=== PATIENT | female | born 1970 | race Caucasian/White ===

== ENCOUNTER 2016-12-30 16:43 | Emergency (ER) | payer MEDICAID ==
[2016-12-30 17:10] VITALS: BP 127/85; PULSE 82; RESP 17; TEMP 98.1; O2SAT 98
--- NOTE | 2016-12-30 18:05 | EDPHY ---
H & P Time Seen by Provider: 12/30/16 17:55 HPI/ROS: CHIEF COMPLAINT: Skin infection HISTORY OF PRESENT ILLNESS: This is a 46-year-old female presenting to the emergency department complaining of skin infection and rash. Patient states she has been having issues with skin rash over 1-2 months, but has noticed a "few spots of pus pockets to my forearm and my chin" over the past week patient states she has scratched it and popped one of the blisters. Denies any fever chills or nausea vomiting REVIEW OF SYSTEMS: Constitutional: No fever, no chills. ENT: No sore throat. Cardiovascular: No chest pain, no palpitations. Respiratory: No cough, no shortness of breath. Gastrointestinal: No abdominal pain, no vomiting. Musculoskeletal: No back pain. Skin: No rashes. Pus pocket on left forearm and chin Neurological: No headache. Smoking Status: Current every day smoker Physical Exam: General Appearance: Alert, no distress. Eyes: Pupils equal and round no pallor or injection. ENT, Mouth: Mucous membranes moist. Respiratory: There are no retractions, nonlabored respiratory effort Cardiovascular: Regular rate and rhythm. Gastrointestinal: Abdomen is soft and nontender Neurological: No focal deficits Skin: Warm and dry. Round oval lesion noted to left forearm erythema with excoriation, 1 cm x .5 cm oval area on right-sided lower chin excoriation erythemic some drainage no swelling Musculoskeletal: Neck is supple nontender. Extremities: symmetrical, full range of motion. Psychiatric: Patient is oriented X 3, there is no agitation. Constitutional: Initial Vital Signs Temperature (C) 36.7 C 12/30/16 17:05 Heart Rate 82 12/30/16 17:05 Respiratory Rate 17 12/30/16 17:05 Blood Pressure 127/85 H 12/30/16 17:05 O2 Sat (%) 98 12/30/16 17:05 O2 Delivery Mode Room Air Allergies/Adverse Reactions: No Known Allergies Allergy (Verified 12/30/16 17:04) Home Medications: Medication Instructions Recorded Cephalexin [Keflex (*)] 250 mg PO TID #21 cap 12/30/16 Topamax 12/30/16 Wellbutrin 100mg (*) 12/30/16 Medical Decision Making ED Course/Re-evaluation: Discussed ED plan of care: wound cx sent, pt pleced on Keflex 1805: Discharge home--> stable, discussed discharge instructions. Patient [facility] week Differential Diagnosis: Other differential diagnosis considered but not limited to abscess, contact dermatitis and MRSA Departure - Departure Disposition: Home, Routine, Self-Care Clinical Impression: Skin infection Condition: Good Instructions: Cellulitis (ED) Additional Instructions: Discussed discharge instructions 1. Take all antibiotics as prescribed. A wound culture was sent if there is any need to change medication treatment plan we will call you 2. Do not scratch or pick area 3. You can take ibuprofen as needed 600 mg every 6-8 hours 4. Follow up with [facility] next week, and Dermatology Referrals: NONE *PRIMARY CARE P,. [Primary Care Provider] - As per Instructions [facility],. [Clinic] - As per Instructions Prescriptions: Cephalexin [Keflex (*)] 250 mg PO TID #21 cap
== END 2016-12-30 18:24 | disposition home or self-care (01) ==
DX: L08.9 Local infection of the skin and subcutaneous tissue, unspecified (principal); F17.200 Nicotine dependence, unspecified, uncomplicated

== ENCOUNTER 2017-02-05 10:32 | Emergency (ER) | payer MEDICAID ==
[2017-02-05 10:39] VITALS: BP 144/96
[2017-02-05] MEDS ORDERED: PROPARACAINE 0.5% 15 ML OPHT DROP OP ONE (10:50)
[2017-02-05] MEDS ORDERED: FLUORESCEIN SODIUM 1 MG STRIP OP ONE ×2 (10:50)
[2017-02-05] MEDS ORDERED: PROPARACAINE 0.5% 15 ML OPHT DROP ONE (10:50)
--- NOTE | 2017-02-05 11:05 | EDPHY ---
H & P Time Seen by Provider: 02/05/17 10:49 HPI/ROS: CHIEF COMPLAINT: Bilateral eye irritation HISTORY OF PRESENT ILLNESS: 46-year-old female history of contact lens use arrives via private vehicle without her contact lenses in. Patient states that yesterday evening she had difficult time removing her bilateral contacts, spend a significant amount of time trying to remove them and rubbing her eyes. She woke complaining of bilateral eye pain and photophobia. PRIMARY CARE PROVIDER:none PHYSICAL EXAM (Prior to examination, patient consented to physical exam, hands were washed and my usual and customary physical exam procedures followed) 1) GENERAL: Well-developed, well-nourished, alert and oriented. averse to light. 2) HEAD: Normocephalic 3) OCULAR EXAM: Visual Acuity: Visual acuity was initially not obtainable this patient did not want open her eyes. After placement of proparacaine patient stated "I can see again" and subsequent visual acuity was obtained with patient's glasses on and in presence of recent proparacaine placement. The patient initially stated to the ER alarm field technician that she could not see anything with her left eye. I performed a repeat visual acuity myself after installation of proparacaine patient's left eye visual acuity is 20/50. Pupils:equal round and reactive to light EOMI Lids: no edema or swelling, upper and lower lids were everted and no foreign bodies were visualized, no areas of increased fluorescein uptake. Skin: no proptosis, no periorbital erythema or swelling, no vesicles, no pain with extraocular movements. No periorbital crepitus. Conjunctivae: not injected, no discharge, negative Lc test. Cornea: Right corneal examination with staining reveals a corneal abrasion at the 5 o'clock position. Left corneal examination with staining reveals a corneal abrasion at the 3 o'clock position with multiple areas of punctate uptake consistent with contact lens use, not consistent with ophthalmic zoster. No dendritic appearance.. Anterior chamber:normal, no hyphema or hypopyon 4) LUNGS: Breathing comfortably. 5) SKIN: no facial lesions. No evidence of zoster. Smoking Status: Current every day smoker Constitutional: Initial Vital Signs Temperature (C) 36.7 C 02/05/17 10:37 Heart Rate 65 02/05/17 10:37 Respiratory Rate 18 07/08/17 10:37 Blood Pressure 144/96 H 02/05/17 10:37 O2 Sat (%) 99 02/05/17 10:37 O2 Delivery Mode Room Air Allergies/Adverse Reactions: No Known Allergies Allergy (Verified 02/05/17 10:35) Home Medications: Medication Instructions Recorded Cephalexin [Keflex (*)] 250 mg PO TID #21 cap 12/30/16 Topamax 12/30/16 Wellbutrin 100mg (*) 12/30/16 Ofloxacin 0.3% [Ocuflox 0.3%] 2 drops EACHEYE QID #1 opht.btl 02/05/17 MDM/Departure - MDM Medications Given: Discontinued Medications Fluorescein Sodium (Acoit-X-Mellb) 2 mg OP EDNOW ONE Stop: 02/05/17 10:51 Last Admin: 02/05/17 10:53 Dose: 2 mg Proparacaine HCl (Alcaine 0.5%) 1 drops OP EDNOW ONE Stop: 02/05/17 10:51 Last Admin: 02/05/17 10:53 Dose: 1 drops - Depart Disposition: Home, Routine, Self-Care Clinical Impression: Bilateral corneal abrasions Qualifiers: Encounter type: initial encounter Qualified Code(s): S05.01XA - Injury of conjunctiva and corneal abrasion without foreign body, right eye, initial encounter; S05.02XA - Injury of conjunctiva and corneal abrasion without foreign body, left eye, initial encounter Condition: Good Instructions: Corneal Abrasion (ED) Additional Instructions: Return to the ER immediately if you have a change in your vision, if you develop pain with eye movements, or any other symptoms that concern you. Do not wear contact lenses until cleared by Ophthalmology Prescriptions: Ofloxacin 0.3% [Ocuflox 0.3%] 2 drops EACHEYE QID #1 opht.btl Referrals: Zachery Maya MD [Medical Doctor] - 02/07/17 (Dr. Zachery Maya is an eye doctor)
[2017-02-05 11:15] VITALS: PULSE 88; RESP 16; TEMP 97.7; O2SAT 98
== END 2017-02-05 11:15 | disposition home or self-care (01) ==
DX: S05.01XA Injury of conjunctiva and corneal abrasion without foreign body, right eye, initial encounter (principal); S05.02XA Injury of conjunctiva and corneal abrasion without foreign body, left eye, initial encounter; F17.200 Nicotine dependence, unspecified, uncomplicated; X58.XXXA Exposure to other specified factors, initial encounter

== ENCOUNTER 2017-03-17 13:45 | Emergency (ER) | payer MEDICAID ==
--- NOTE | 2017-03-17 14:33 | EDPHY ---
H & P Time Seen by Provider: 03/17/17 14:24 HPI/ROS: CHIEF COMPLAINT: "I'm molding" HISTORY OF PRESENT ILLNESS: 46-year-old female via private vehicle complaining of several months of "being covered in mold and shedding mold". She describes she will also notice small red in black strings emanating from her skin. She has seen her primary care provider at the [facility] and has also been seen by a extrusion operator however states that they could not offer further therapies or diagnostics and expresses her frustration at not have an answer or any medications that can alleviate her symptoms. She point to multiple areas of her hands and face indicating discoloration, stating that she can see and feel the fungal spores on her. She denies: Fever, chills, flu-like symptoms, nausea, vomiting, abdominal pain , urinary abnormality, intraoral lesions, hallucination, suicidal or homicidal ideation. PRIMARY CARE PROVIDER: the [facility] REVIEW OF SYSTEMS: A ten point review of systems was performed and is negative with the exception of the items mentioned in the HPI PAST MEDICAL & SURGICAL HISTORY: History of alcoholism SOCIAL HISTORY: denies illicit drug or methamphetamine use PHYSICAL EXAM (Prior to examination, patient consented to physical exam, hands were washed and my usual and customary physical exam procedures followed) 1) GENERAL: Well-developed, well-nourished, alert and oriented. Appears anxious 2) HEAD: Normocephalic, atraumatic 3) HEENT: No injection. Sclera anicteric. Nasopharynx, oropharynx, clear, no lesions. 4) NECK: Full range of motion, no meningeal signs. no bruit. No adenopathy. 5) LUNGS: Clear auscultation bilaterally 6) HEART: Regular rate and rhythm, no murmur, no heave, no gallop. 7) ABDOMEN: No guarding, no rebound, no focal tenderness, negative McBurney's, unable to elicit any abdominal pain on exam 8) MUSCULOSKELETAL: No peripheral edema or discoloration. 9) BACK: no visual or palpable abnormality. 10) SKIN: No lesions to face, hands, neck, fingers . No areas of tenderness. No evidence of cellulitis or tinea corporis. 11) Psychiatric: Patient is oriented X 3, she appears anxious DIFFERENTIAL DIAGNOSIS: in no particular order including but not limited to delusions of parasitosis, cellulitis, tinea corporis Smoking Status: Former smoker Constitutional: Initial Vital Signs Temperature (C) 36.8 C 03/17/17 13:47 Heart Rate 92 03/17/17 13:47 Respiratory Rate 18 03/17/17 13:47 Blood Pressure 138/99 H 03/17/17 13:47 O2 Sat (%) 97 03/17/17 13:47 O2 Delivery Mode Room Air Allergies/Adverse Reactions: No Known Allergies Allergy (Verified 02/05/17 10:35) Home Medications: Medication Instructions Recorded Wellbutrin 100mg (*) 12/30/16 Topamax 03/17/17 MDM/Departure - MDM ED Course/Re-evaluation: I empathized with the patient's ongoing symptoms. I do not identify any lesions on her hands or her face although she repeatedly points to her hands and states that she can feel and see the spores. I do not think the patient meets criteria for an M1 hold. We discussed possibility of delusional parasitosis. At this time I do not think that further diagnostic studies are indicated from the emergency department. I have offered referral to extrusion operator which she declined. She requests referral to the [facility] which I provided her. - Depart Disposition: Home, Routine, Self-Care Clinical Impression: Delusions of parasitosis Condition: Good Instructions: Acute Rash (ED) Additional Instructions: Return to the emergency department if you develop new or worsening symptoms Referrals: [facility] (ED,. [Edm Groups for Call Sched] - 5-7 days, call for appt.
[2017-03-17 15:57] VITALS: BP 131/87; PULSE 86; RESP 16; TEMP 97.9; O2SAT 97
== END 2017-03-17 15:57 | disposition home or self-care (01) ==
DX: F22 Delusional disorders (principal); Z87.891 Personal history of nicotine dependence

== ENCOUNTER 2017-04-11 11:00 | Emergency (ER) | payer OTHER, MEDICAID ==
[2017-04-11 11:13] VITALS: BP 119/75; PULSE 88; RESP 18; TEMP 98.4; O2SAT 100
--- NOTE | 2017-04-11 12:32 | EDPHY ---
H & P Time Seen by Provider: 04/11/17 11:29 HPI/ROS: CHIEF COMPLAINT: right thumb complaint HISTORY OF PRESENT ILLNESS: 46-year-old female presents emergency department complaining of right thumb pain. Patient lacerated her thumb 1 month ago while at work. Today this opened up and she is concerned there is a piece of glass retained from the laceration. She denies fevers or chills. She reports redness , tenderness. Patient was seen at an urgent care after the initial injury though was seen too late for this to be sutured. Right wound was cleaned and dressing was placed. She denies numbness or tingling to this hand. Smoking Status: Current every day smoker Physical Exam: GEN: Awake, alert, oriented, no acute distress RESP: nl resp effort MSK: Full active range of motion of right thumb against resistance, 2 point discrimination intact, cap refill less than 2 seconds SKIN: 1 cm x 1 cm of mild erythema and induration to palmar aspect of right hand base of right thumb over MCP joint Constitutional: Initial Vital Signs Temperature (C) 36.9 C 04/11/17 11:02 Heart Rate 88 04/11/17 11:02 Respiratory Rate 18 04/11/17 11:02 Blood Pressure 119/75 04/11/17 11:02 O2 Sat (%) 100 04/11/17 11:02 O2 Delivery Mode Room Air Allergies/Adverse Reactions: No Known Allergies Allergy (Verified 04/11/17 11:01) Home Medications: Medication Instructions Recorded Wellbutrin 100mg (*) 12/30/16 MDM/Departure - Depart Disposition: Home, Routine, Self-Care Clinical Impression: Open wound of right thumb Qualifiers: Encounter type: initial encounter Qualified Code(s): S61.001A - Unspecified open wound of right thumb without damage to nail, initial encounter Condition: Good Instructions: Acute Wounds (ED) Additional Instructions: Warm soaks 3 times per day for 5 minutes. Keep clean and dry. Place antibiotic ointment and bandaid. Return to the ED for increased pain, redness , swelling, new symptoms or concerns. Referrals: [facility] [Other] - As per Instructions
== END 2017-04-11 13:41 | disposition home or self-care (01) ==
DX: S61.001A Unspecified open wound of right thumb without damage to nail, initial encounter (principal); F17.200 Nicotine dependence, unspecified, uncomplicated; W25.XXXA Contact with sharp glass, initial encounter; Y92.69 Other specified industrial and construction area as the place of occurrence of the external cause; Y99.0 Civilian activity done for income or pay; Y93.89 Activity, other specified